=== PATIENT | female | born 1965 | race Caucasian/White ===

== ENCOUNTER 2019-04-07 04:20 | Emergency (ER) | payer OTHER ==
[~2019-04-07] VITALS: Ht 162.6 cm; Wt 59.0 kg
--- NOTE | 2019-04-07 04:20 | NUR ---
PT JONO ON GURNEY TO BED # 4
--- NOTE | 2019-04-07 04:20 | NUR ---
PT CAME INTO ER WITH C/O PAIN TO THE FEET BILATERAL AND BEING TIRED DUE TO WALKING TO HER BROTHERS HOUSE, STATED THE PT. PT IS ALERT AND IS ABLE TO ANSWER QUESTIONS APPROPRIATELY. PAIN LEVEL IS 8/10 ON HER FEET. FEET BILATERAL HAS REDNESS. PT STATED SHE WAS NOT WEARING SOCKS AND HER FEET WERE RUBING AGAINST HER TIGHT SHOES. NO OTHER COMPLAINTS REGARDING PAIN OR INJURY WERE MADE. PT STATED SHE DOES NOT KNOW IF SHE HADS MEDICAL PROBLEMS AND DOES NOT KNOW IF SHE HAS ANY ALLERGIES. ERMD MADE AWARE OF STATUS. SAFETY MEASURES ARE IN PLACE. WILL CONTINUE TO MONITOR.
[2019-04-07 04:23] VITALS: BP 121/74
--- NOTE | 2019-04-07 07:25 | NUR ---
received from camila moore patient sleeping upon entering the room and was awaken, coherent , afebrile oriented .
[2019-04-07 08:33] VITALS: BP 128/75
--- NOTE | 2019-04-07 08:33 | NUR ---
Patient discharged in stable condition. Written and verbal after care instructions given and explained regarding ankle pain. Patient verbalized understanding. Ambulatory with steady gait. All questions addressed prior to discharge. Advised to follow up with PMD.patient given socks ,homeless meal ,fpc pocket and signed homeless waiver. Pt given bus pass for transportation.
== END 2019-04-07 08:33 | disposition home or self-care (01) ==
LOC: MED 04:20 → EDSEX 04:20 → MED 08:33
DX: M79.671 Pain in right foot (principal); M79.672 Pain in left foot; F17.200 Nicotine dependence, unspecified, uncomplicated
CPT/HCPCS: 99283